=== PATIENT | male | born 1955 | race Caucasian/White ===

== ENCOUNTER → 2016-06-14 | Outpatient (CLI) | payer OTHER ==
[2016-06-14 10:34] LABS: BASO % 0.6 %; BASO ABS # 0.04 K/uL (0-0.2); COMPLETE YES; EOS % 2.4 %; HEMATOCRIT 40.3 % (42-52); IG% 0.5 %; LYMPH % 31.7 %; LYMPH ABS # 2.11 K/uL (1.2-3.4); MEAN CELL VOLUME 88.2 fL (80-100); MEAN CORPUSCULAR HEMOGLOBIN 29.8 pg (25-34); MEAN CORPUSCULAR HGB CONC 33.7 g/dl (32-36); MEAN PLATELET VOLUME 10.3 fL (7.4-10.4); MONO % 10.4 %; NEUT % 54.4 %; PLATELET COUNT 253 K/uL (130-400); RED BLOOD COUNT 4.57 M/uL (4.7-6.1); WHITE BLOOD COUNT 6.66 K/uL (4.8-10.8)
[2016-06-14 10:44] LABS: ALT/SGPT 42 U/L (12-78); AST/SGOT 25 U/L (15-37); BLOOD UREA NITROGEN 17 mg/dl (7-18); BUN/CREATININE RATIO 19.2 (10-20); CALCIUM 8.9 mg/dl (8.5-10.1); CARBON DIOXIDE 30 mmol/L (21-32); CHLORIDE 107 mmol/L (98-107); GLUCOSE 97 mg/dl (70-99); POTASSIUM 4.3 mmol/L (3.5-5.1); SODIUM 141 mmol/L (136-145)
[2016-06-14 10:47] LABS: ALB/GLOB RATIO 1.1 (0.9-2); ALKALINE PHOSPHATASE 69 U/L (45-117); CHOLESTEROL 239 mg/dl (0-200); CHOLESTEROL/HDL RATIO 6.3; HDL CHOLESTEROL 38 mg/dl; LDL CHOLESTEROL CALCULATED 149 mg/dl; TRIGLYCERIDES 258 mg/dl (0-150); VERY LOW DENSITY LIPOPROT CALC 52 mg/dl
[2016-06-14 11:00] LABS: PROSTATE SPECIFIC ANTIGEN 0.698 ng/ml (0.000-4.000)
[2016-06-14 11:15] LABS: ESTIMATED AVERAGE GLUCOSE 105 mg/dl; HA1C FLAG Normal (Normal)
== END | disposition home or self-care (01) ==
LOC: C.LAB 07:09
PROVIDERS: ATTEND Pathology Anatomic Pathology & Clinical Pathology
DX: Z00.00 Encounter for general adult medical examination without abnormal findings (principal)

== ENCOUNTER → 2017-05-08 | Outpatient (CLI) | payer OTHER | END | disposition home or self-care (01) | LOC: C.PATHSPEC 11:30 | PROVIDERS: ATTEND Plastic Surgery | DX: C44.719 Basal cell carcinoma of skin of left lower limb, including hip (principal) ==

== ENCOUNTER → 2017-05-23 | Day surgery (SDC) | payer OTHER ==
[2017-05-18 09:44] LABS: BASO % 0.4 %; BASO ABS # 0.03 K/uL (0-0.2); EOS % 1.6 %; EOS ABS # 0.12 K/uL (0-0.5); HEMATOCRIT 41.6 % (42-52); IG# 0.03 K/uL (0.00-0.02); LYMPH % 25.9 %; LYMPH ABS # 1.89 K/uL (1.2-3.4); MEAN CELL VOLUME 85.8 fL (80-100); MEAN CORPUSCULAR HEMOGLOBIN 28.9 pg (25-34); MEAN CORPUSCULAR HGB CONC 33.7 g/dl (32-36); MEAN PLATELET VOLUME 9.8 fL (7.4-10.4); MONO % 7.8 %; MONO ABS # 0.57 K/uL (0.11-0.59); NEUT % 63.9 %; NEUT ABS # 4.67 K/uL (1.4-6.5); PLATELET COUNT 222 K/uL (130-400); RED CELL DISTRIBUTION WIDTH CV 13.3 % (11.5-14.5); RED CELL DISTRIBUTION WIDTH SD 41.4 fL (36.4-46.3); WHITE BLOOD COUNT 7.31 K/uL (4.8-10.8)
[2017-05-18 09:50] LABS: INR 1.2 (0.9-1.1); PTT PATIENT 28.7 SECONDS (21.0-31.0)
[2017-05-18 10:22] LABS: BLOOD UREA NITROGEN 16 mg/dl (7-18); CALCIUM 9.2 mg/dl (8.5-10.1); CARBON DIOXIDE 29 mmol/L (21-32); CREATININE 0.93 mg/dl (0.60-1.40); GLUCOSE 98 mg/dl (70-99); POTASSIUM 4.4 mmol/L (3.5-5.1); SODIUM 139 mmol/L (136-145)
[2017-05-18 10:42] VITALS: Ht 177.8 cm; Wt 89.2 kg
[~2017-05-23] VITALS: Ht 177.8 cm; Wt 89.2 kg
[~2017-05-23] MED LIST: ACETAMINOPHEN 325 MG TAB PO PRN; BUPIVACAINE 0.25% 30 ML VIAL ONE; CEFAZOLIN 2000MG IV PUSH 15 ML IV SCH; FIBER GUMMY PO; LACTATED RINGER'S 1000ML 1,000 ML IV SCH; LIDOCAINE/EPINEPHRINE 1% 20 ML VIAL ONE; SODIUM CHLORIDE 0.9% 1000ML 1,000 ML IV SCH
--- NOTE | 2017-05-23 08:21 | History & Physical Bridge - [place] ---
H&P Re-Evaluation Bridge Note: I have examined the patient, reviewed the History & Physical and in the interval since the performance of the History & Physical I have noted the following changes of clinical significance: No changes noted
--- NOTE | 2017-05-23 09:56 | [facility] Post Operative Brief Note ---
Immediate Operative Summary Operative Date May 23, 2017. Pre-Operative Diagnosis Left Anterior Lower Leg Basal Cell Carcinoma Post-Operative Diagnosis Same Procedure(s) Performed Left Anterior Lower Leg Basal Cell Carcinoma Excision With Frozen Section And Primary Closure Surgeon Dr. Hicks Laboratory Analyst Surgeon(s) Marga Bruce PA-C Estimated Blood Loss 2 ml Findings Consistent with Post-Op Diagnosis Specimens A) Left Anterior Leg Basal Cell CA Anesthesia Type Local Complication(s) none Disposition Disposition: Recovery Room / PACU
[2017-05-23 10:02] VITALS: TEMP 36.4
--- NOTE | 2017-05-23 10:07 | Discharge Instructions ---
Discharge Instructions Date of Service May 23, 2017. Admission Reason for Admission: Basal Cell Carcinoma Of Skin Discharge Discharge Diagnosis / Problem: basal cell skin cancer Discharge Goals Goal(s): Decrease discomfort, Improve function Activity Recommendations Activity Limitations: per Instructions/Follow-up section ACTIVITY RECOMMENDATIONS: __Normal activities _x_No bending, lifting or straining __No driving __Driving allowed when you are off pain medications _x_Walking permitted with caution. Limit time on feet/walking __You should have help at home for ___ days DRESSINGS: __No dressings required __Keep dressings dry/in place until first office visit x__Remove dressings __2 day_. Baltazar wrap or compression sock after you remove dressings __Apply ice ___ days __Remove dressings and reapply garment __Apply antibiotic ointment (Bacitracin, Neosporin, etc) to wounds 3-4 times/ day for 10 days BATHING: x__Keep dressings dry _x_Sponge bathing permitted _x_Showering permitted in 2 days. let the water run over your incisions and pat dry. Do not put any ointments or lotions over incision _x_No swimming, hot tubs or soaking in a tub MEDICATIONS: Resume previous medications unless instructed otherwise by your surgeon. _x_Do not use aspirin, Motrin, Advil or Ibuprofen as these may promote bleeding. Please use Tylenol. _x_Prescription(s) provided: pain medication was provided at your last office visit OTHER INSTRUCTIONS: __Record drain output 2-3 times per day SPECIAL CARE INSTRUCTIONS: * It is normal to have a mild fever after surgery. If your temperature is higher than 101.5 degrees F, please call the office at [phone]. * Constipation is a typical side effect of pain medication. An over-the- counter stool softener will help relieve this. * Leaking around surgical drains may occur and should not cause concern. Sometimes these drains become clogged. If this happens, remove the bulb and milk the clot out of the tube, then replace the bulb. * Drainage from wounds after liposuction is normal and should be expected. Garments will become soiled. You should protect furniture and bedding. This drainage should mostly subside within 2-3 days. Leave garments in place unless instructed to remove them. * If you have unusual drainage from a wound or are concerned you have an infection or have any questions or concerns, please call the office at [phone]. FOLLOW UP VISIT: If not already scheduled, please call the office, , when you return home after surgery to schedule an appointment to be seen in __14_ days. . Current Hospital Diet Patient's current hospital diet: Discharge Diet Recommended Diet: Regular Diet Procedures Procedures Performed: Left Anterior Lower Leg Basal Cell Carcinoma Excision With Frozen Section And Primary Closure Pending Studies Studies pending at discharge: yes List of pending studies: pathology Laboratory Results Lipid Panel Test 05/18/17 08:00 Range/Units Triglycerides Level 198 H 0-150 mg/dl Cholesterol Level 232 H 0-200 mg/dl HDL Cholesterol 38 mg/dl Cholesterol/HDL Ratio 6.1 LDL Cholesterol, Calculated 154 mg/dl Medical Emergencies . Who to Call and When: Medical Emergencies: If at any time you feel your situation is an emergency, please call 911 immediately. . Non-Emergent Contact Non-Emergency issues call your: Surgeon . "Provider Documentation" section prepared by Afsaneh Bruce. . [place] Drug Monitoring Program Search Results: no issues identified
[2017-05-23 10:30] VITALS: BP 154/85; PULSE 45; O2SAT 96
--- NOTE | 2017-05-23 12:47 | OPERATIVE REPORT ---
DATE OF OPERATION: 05/23/2017 PREOPERATIVE DIAGNOSIS: Basal cell carcinoma, left anterior lower leg. POSTOPERATIVE DIAGNOSIS: Basal cell carcinoma, left anterior lower leg. PROCEDURE: Excision basal cell carcinoma, left anterior lower leg with frozen section and primary closure. SURGEON: Dr. Nata Hicks. OSTOMY RN: Afsaneh Bruce PA-C. ANESTHESIA: Local. COMPLICATIONS: None. INDICATION FOR THE PROCEDURE: Patient is a 62-year-old male who presented to my office with a nonhealing wound of his left anterior lower leg. Shave biopsy was performed showing basal cell carcinoma. Given the large size of this lesion and possible need for full thickness skin grafting to reconstruct the defect, we elected to proceed with this at the surgical center. Again, given the large size and need for possible reconstruction, I recommended frozen section. BRIEF DESCRIPTION OF THE PROCEDURE: Risks, benefits, and alternatives of the procedure were explained to the patient who agreed and signed consent. He was identified and marked in the preoperative holding area. He was brought to the operating room where he was positioned supine and placed under anesthesia without incident. Surgical site was prepped and draped sterilely. A time-out procedure was performed. The planned excision was marked. Maximal excision diameter was 3 x 2 cm. Lidocaine 1% with epinephrine mixed with 0.25% Marcaine plain was used to anesthetize the area. A 15-blade scalpel was used to make the oval skin incision. It was removed with some underlying subcutaneous fat. A suture was placed to marco antonio 12 o'clock position. Lesion was sent for frozen section. Preliminary pathology report came back showing residual basal cell carcinoma with all margins clear. There did appear to be enough tissue mobility that I felt I could achieve primary closure with wide undermining. The dog ears were marked for excision in an elliptical fashion. A 15 blade scalpel made these incisions and electrocautery was used to deepen them and to excise the underlying subcutaneous fat. Wound edges were undermined about 3 cm using electrocautery. Wound was reapproximated using 2-0 Vicryl interrupted deep dermal sutures, 3-0 PDS interrupted superficial dermal sutures, 3-0 Monocryl running subcuticular suture. Dermabond was applied. Total wound closure length was 9 cm. A dry dressing and an Baltazar wrap were applied. Procedure was tolerated well. Findings were discussed with the patient at the time of the procedure. I attest to the content of the Intraoperative Record and any orders documented therein. Any exception s are noted below.
== END | disposition home or self-care (01) ==
LOC: X.SURG 07:39
PROVIDERS: ATTEND Plastic Surgery
DX: C44.91 Basal cell carcinoma of skin, unspecified (principal); L98.499 Non-pressure chronic ulcer of skin of other sites with unspecified severity; Z98.49 Cataract extraction status, unspecified eye; Z82.49 Family history of ischemic heart disease and other diseases of the circulatory system; Z82.3 Family history of stroke; Z80.7 Family history of other malignant neoplasms of lymphoid, hematopoietic and related tissues

== ENCOUNTER → 2017-05-29 | Outpatient (CLI) | payer OTHER ==
[~2017-05-29] MED LIST changes: -ACETAMINOPHEN 325 MG TAB PO PRN; -BUPIVACAINE 0.25% 30 ML VIAL ONE; -CEFAZOLIN 2000MG IV PUSH 15 ML IV SCH; -LACTATED RINGER'S 1000ML 1,000 ML IV SCH; -LIDOCAINE/EPINEPHRINE 1% 20 ML VIAL ONE; -SODIUM CHLORIDE 0.9% 1000ML 1,000 ML IV SCH
== END | disposition home or self-care (01) ==
LOC: C.LABSPEC 18:13
PROVIDERS: ATTEND Physician Assistant
DX: M25.462 Effusion, left knee (principal)

== ENCOUNTER → 2017-06-02 | Outpatient (CLI) | payer OTHER ==
[2017-06-02 12:36] LABS: HEMATOCRIT 38.4 % (42-52); HEMOGLOBIN 13.2 g/dL (14.0-18.0); MEAN CELL VOLUME 85.7 fL (80-100); MEAN CORPUSCULAR HEMOGLOBIN 29.5 pg (25-34); MEAN CORPUSCULAR HGB CONC 34.4 g/dl (32-36); MEAN PLATELET VOLUME 9.8 fL (7.4-10.4); PLATELET COUNT 316 K/uL (130-400); RED CELL DISTRIBUTION WIDTH CV 13.1 % (11.5-14.5); RED CELL DISTRIBUTION WIDTH SD 41.2 fL (36.4-46.3); WHITE BLOOD COUNT 6.98 K/uL (4.8-10.8)
--- NOTE | 2017-06-06 17:11 | CODING QUERY NO DIAGNOSIS ---
TREATMENT RENDERED WITHOUT A DIAGNOSIS To promote full compliance with coding requirements relating to patient care, physician participation is requested in all cases of warranty administrator uncertainty. Please assist us with providing a diagnosis/symptom for the test(s) below: A diagnosis/symptom was not documented on your Order. A valid diagnosis/symptom is required to bill all insurances. Please remember that we are unable to code a diagnosis of rule out, probable, possible, questionable, or suspected. Tests that require a diagnosis: Dos: 06/02/17 (No diagnosis provided on order form) * CBC DIAGNOSIS: * ESR DIAGNOSIS: * CRP DIAGNOSIS: * Lyme Titer DIAGNOSIS: Provider Signature: Date: Thank you Claudette Lynne Health Information Management Once completed, please kindly fax back to [phone] For questions please call [phone]
== END | disposition home or self-care (01) ==
LOC: C.LAB 10:03
PROVIDERS: ATTEND Physician Assistant
DX: M25.462 Effusion, left knee (principal)